=== PATIENT | female | born 1965 | race American Indian/Alaskan Native ===

== ENCOUNTER 2021-11-19 06:12 | Emergency (ER) | payer MEDICAID ==
--- NOTE | 2021-11-19 12:24 | Emergency Department Report ---
ED Lower Extremity HPI - General Chief Complaint: Extremity Injury, Lower Stated Complaint: TOE ISSUES Source: patient Mode of arrival: Ambulatory Limitations: No Limitations - History of Present Illness Initial Comments: Note: patient has 2 different accounts, 1 under male and 1 under female 56-year-old patient with multiple medical history including PAD, diabetes, hypertension, chronic pain of her left lower extremity, presenting with toe issues. Patient reports she has been having pain in that left big toe for "a well ll". States that the area is "turning black and the skin is coming off from on the needs". Describes the pain as sharp, throbbing aching, she denies any fall or injury. States she "did undergo surgery with a Dr. Bhanu Mujica of [place] to remove the blockages, and he put her on some Plavix and told her to stop smoking otherwise she would lose the toe". However she still smokes and has yet to follow-up with Dr. Mujica because she has no transportation. She denies weakness, she denies fall or injury, no chest pain shortness of breath headache dizziness or vision changes. Injury: Toes: Left Type of Injury: unknown Severity scale (0 -10): 10 Improves With: nothing Worsens With: nothing Associated Symptoms: able to partially bear weight, ambulatory - Related Data Previous Rx's Medication Instructions Recorded Last Taken Type Acetaminophen/Codeine [Tylenol 1 tab PO Q4HR PRN #12 tablet 11/19/21 Unknown Rx /Codeine # 3 tab] Gabapentin 300 mg PO BID #60 cap 11/19/21 Unknown Rx Allergies Allergy/AdvReac Type Severity Reaction Status Date / Time No Known Allergies Allergy Verified 11/19/21 08:03 ED Review of Systems ROS: Stated complaint: TOE ISSUES Other details as noted in HPI Constitutional: no symptoms reported ENT: as per HPI Respiratory: no symptoms reported. denies: cough, orthopnea Cardiovascular: denies: chest pain, palpitations Endocrine: denies: excessive sweating, intolerance to cold, intolerance to heat Gastrointestinal: denies: abdominal pain, nausea, vomiting Genitourinary: denies: urgency, dysuria, frequency Musculoskeletal: arthralgia Skin: change in color Neurological: numbness. denies: headache, weakness Psychiatric: denies: anxiety, depression ED Past Medical Hx - Medications Home Medications: Home Medications Medication Instructions Recorded Confirmed Last Taken Type Acetaminophen/Codeine [Tylenol 1 tab PO Q4HR PRN #12 tablet 11/19/21 Unknown Rx /Codeine # 3 tab] Gabapentin 300 mg PO BID #60 cap 11/19/21 Unknown Rx ED Physical Exam - General Limitations: No Limitations General appearance: alert, in no apparent distress - Head Head exam: Present: atraumatic, normocephalic - Eye Eye exam: Present: normal appearance - ENT ENT exam: Present: normal exam - Neck Neck exam: Present: normal inspection. Absent: tenderness - Respiratory Respiratory exam: Present: normal lung sounds bilaterally. Absent: respiratory distress - Cardiovascular Cardiovascular Exam: Present: regular rate - GI/Abdominal GI/Abdominal exam: Present: soft. Absent: distended, tenderness - Extremities Exam Extremities exam: Present: tenderness, other (There is a discoloration of her distal aspect of her left great. Patient also has fungus nail, otherwise no obvious swelling of the left foot, she has intact PT and DP pulses that are palpable and also audible via Doppler waves.). Absent: pedal edema - Back Exam Back exam: Present: normal inspection, full ROM - Neurological Exam Neurological exam: Present: alert, oriented X3 - Psychiatric Psychiatric exam: Present: normal affect, normal mood - Skin Skin exam: Present: warm, dry, normal color. Absent: cyanosis ED Course Vital Signs 11/19/21 08:01 Temperature 97.4 F L Pulse Rate 87 Respiratory 18 Rate Blood Pressure 153/72 [Left] O2 Sat by Pulse 99 Oximetry ED Lower Extremity MDM - Medical Decision Making 56-year-old female presenting with discoloration and toe pain, atraumatic, except for the discoloration of the distal greater toe, patient is neurovascularly intact, pulses sensation intact, she is under the care of a Dr. Mujica who is a vascular surgeon in [place] and has yet to follow-up with him. Symptoms as rest of her insufficiency and vascular problems, pain addressed in the emergency department, she is able to ambulate and bear weight. I have instructed patient to follow-up with her surgeon, as the only reason she could not follow-up with him was due to "lack of transportation". Gone over ED findings with her, and also discussed return precautions which includes difficulty walking fever swelling nausea vomiting or any other concerning symptoms. Encourage patient to make sure to follow-up with her doctor because if she is requiring constant pain medications she will be a candidate for pain management assistance. Patient verbalized understanding of everything discussed, Critical care attestation.: If time is entered above; I have spent that time in minutes in the direct care of this critically ill patient, excluding procedure time. ED Disposition Clinical Impression: Toe pain, chronic, Diabetic neuropathy Disposition: 01 HOME / SELF CARE / HOMELESS Is pt being admited?: No Does the pt Need Aspirin: No Condition: Stable Instructions: Chronic Pain, Adult, Pain Medicine Instructions, [id number], Diabetes Mellitus Type 2 in Adults (ED) Prescriptions: Gabapentin 300 mg PO BID #60 cap Acetaminophen/Codeine [Tylenol /Codeine # 3 tab] 1 tab PO Q4HR PRN #12 tablet PRN Reason: Pain Referrals: PRIMARY CARE, [Primary Care Provider] - 3-5 Days
[2021-11-19] MEDS ORDERED: HYDROcodone/ACETAMINOPHEN 5-325 MG TAB PO ONE (12:32)
[2021-11-19 14:18] VITALS: BP 141/83
== END 2021-11-19 14:16 | disposition home or self-care (01) ==
LOC: ED 06:12
DX: M79.675 Pain in left toe(s) (principal); E11.40 Type 2 diabetes mellitus with diabetic neuropathy, unspecified
CPT/HCPCS: 99282